=== PATIENT | female | born 1985 ===

== ENCOUNTER 2020-12-13 09:57 | Emergency (ER) | payer SELFPAY ==
[~2020-12-13] VITALS: Ht 165.1 cm; Wt 70.8 kg
[2020-12-13 10:09] VITALS: BP 198/100
== END 2020-12-13 11:34 | disposition left against medical advice (07) ==
LOC: M ED 09:57
DX: Z53.21 Procedure and treatment not carried out due to patient leaving prior to being seen by health care provider (principal)